=== PATIENT | male | born 1995 | race Caucasian/White ===

== ENCOUNTER 2016-12-06 12:57 | Day surgery (SDC) | payer MEDICAID, OTHER ==
[~2016-12-06] VITALS: Ht 185.4 cm; Wt 98.9 kg
[2016-12-06] MEDS ORDERED: dexameTHASONE 10 MG/1 ML VIAL PRES.FREE (J1100) ONE (12:58)
[2016-12-06] MEDS ORDERED: LIDOCAINE 1% MDV 20ML VIAL ONE (12:58)
[2016-12-06] MEDS ORDERED: ROPIvacaine 0.5% 30 ML INJECTION (J2795) ONE (12:58)
[2016-12-06] MEDS ORDERED: PERCOCET 5MG/325MG TAB PO ONE (13:00)
[2016-12-06] MEDS ORDERED: LR 1,000 ML IV SCH ×2 (13:00→18:30)
[2016-12-06] MEDS ORDERED: LR 1,000 ML IV ONE (13:45)
[2016-12-06] MEDS ORDERED: MIDAZOLAM INJ 2 MG/2 ML VIAL (J2250) As Ordered ONE ×2 (14:55→15:26)
[2016-12-06] MEDS ORDERED: fentaNYL 100 MCG/2 ML INJECTION (J3010) As Ordered ONE ×3 (14:55→16:27)
[2016-12-06] MEDS ORDERED: BUPIVACAINE/EPIN 0.25% 30 ML VIAL As Ordered ONE (15:19)
[2016-12-06] MEDS ORDERED: ceFAZolin 1GM INJ (J0690) As Ordered ONE (15:20)
[2016-12-06] MEDS ORDERED: MIDAZOLAM INJ 2 MG/2 ML VIAL (J2250) IV ONE (15:30)
[2016-12-06] MEDS ORDERED: fentaNYL 100 MCG/2 ML INJECTION (J3010) IV ONE (15:30)
[2016-12-06] MEDS ORDERED: LIDOCAINE 2% INJ 100 MG/5 ML SDV (FOR ANES.) As Ordered ONE (15:56)
[2016-12-06] MEDS ORDERED: PROPOFOL 200 MG/20 ML VIAL As Ordered ONE (16:27)
[2016-12-06] MEDS ORDERED: ONDANSETRON 4MG/2ML VIAL (J2405) As Ordered ONE (16:27)
[2016-12-06] MEDS ORDERED: NEOSTIGMINE 1MG/ML 5 ML SYRINGE (J2710) As Ordered ONE (16:37)
[2016-12-06] MEDS ORDERED: GLYCOPYRROLATE INJ 0.2 MG/ML 2 ML VIAL As Ordered ONE (16:37)
[2016-12-06] MEDS ORDERED: HYDROmorphone HCL 1 MG/ML SYRINGE (J1170) IV PRN (18:30)
[2016-12-06] MEDS ORDERED: ONDANSETRON 4MG/2ML VIAL (J2405) IV PRN (18:30)
[2016-12-06] MEDS ORDERED: PERCOCET 5MG/325MG TAB PO PRN ×3 (18:30)
[2016-12-06] MEDS ORDERED: PROMETHAZINE INJ 25 MG/ML VIAL (J2550) IV PRN (18:30)
[2016-12-06] MEDS ORDERED: fentaNYL 100 MCG/2 ML INJECTION (J3010) IV PRN (18:30)
[2016-12-06] MEDS ORDERED: MORPHINE 4 MG/ML 1ML SYRINGE IV PRN (18:30)
[2016-12-06 19:00] VITALS: BP 157/91
[2016-12-06 19:30] VITALS: BP 140/95
[2016-12-06 20:30] VITALS: BP 144/85
[2016-12-06 21:30] VITALS: BP 145/83
[2016-12-06 22:30] VITALS: BP 147/79
[2016-12-07] VITALS: BP 137/72
[2016-12-07 04:00] VITALS: BP 133/76
[2016-12-07 08:00] VITALS: BP 148/85
--- NOTE | 2016-12-08 02:45 | REP ---
Clinical: Evaluate orthopedic hardware. Technique: AP and axial views of the left clavicle. Findings: The patient is noted to be status post open reduction and fixation for mid clavicular shaft fracture. While the distal aspect of the plate appears from the underlying clavicle by approximately 4 mm, the associated screws are normal in appearance and position without surrounding lucency to suggest abnormality. No periosteal reaction is identified. No new acute fracture. The acromioclavicular joint is relatively maintained. Impression: Orthopedic hardware for a mid clavicular shaft fracture appears stable and without acute findings or pathology. Signed by Michele Martin MD 12/08/2016 02:37 A
--- NOTE | 2016-12-08 16:43 | RO ---
DATE OF PROCEDURE: 12/06/2016 PREOPERATIVE DIAGNOSIS: Left clavicle nonunion. POSTOPERATIVE DIAGNOSIS: Left clavicle nonunion. PROCEDURE PERFORMED: Exploration of the left clavicle nonunion, debridement of left clavicle, and repair of left clavicle nonunion / open reduction internal fixation (ORIF) with metal hardware. SURGEON: Dr. Jaime Tsai RUFFLER: Dr. Larry Randall. ANESTHESIA: General. ESTIMATED BLOOD LOSS: Less than 30 mL replaced with crystalloid. COMPLICATIONS: No complications. COMPONENTS USED: Include a [employer] superior / anterior clavicle lock plate system 5 volts plate and the appropriate screws. INDICATIONS: Jan is a 21-year-old male with the clavicle nonunion. Clavicle fracture that has not healed since June 2016. He has elected for operative intervention. Next, consent reviewed in detail including a rukhsana discussion of the pathology involved, the procedure proposed, alternatives including doing nothing, risks including but not limited to pain, failure, infection, bleeding, blood loss, incomplete relief symptoms and other problems. The patient agreed to proceed with surgery. Operative course identified in the holding area site side verified brought to the operating room. General endotracheal anesthesia was administered. He was positioned for exposure of the left shoulder and the beach-chair position. Next, once I and the operations intelligence were comfortable and the patient's positioning he was then sterilely prepped and draped. Next line the incision outlined with a marking pen infiltrated with 0.25% Marcaine with epinephrine. I made the incision using a #10 blade, developed down through skin subcuticular tissues. Next, the clavicle was identified. Proximal end was identified. The incision continued 3 cm or three fingerbreadths proximal to the injury. Next, the distal fragment identified. Next, we exposed the distal and proximal fragment. Next, once the fragments were mobilized by myself and Dr. Larry Randall, we utilized fracture reduction clamps to reduce them. Next, once this was accomplished an interfragmentary screw from anterior to posterior was placed securing the fracture fragment and this allowed removal of the clamps. Next, prior to this maneuver both ends of the clavicle were freshened and roughened to facilitate bone healing. Next, the plate was obtained 5 volts plate seems to fit appropriately, required minimal bending. Plate was secured to the clavicle using cortical screws. On the proximal end we did manage she had a single cortical screw on the distal fragment as well as the locking 2-7 screws. Next, visually the clavicle appeared to be nearly anatomic alignment. Next, irrigation was accomplished. Next, demineralized bone matrix putty was injected into the fracture site and under the plate at the site of fracture. Next, the wound was closed using interrupted stitch in layer fashion. Next DERMABOND / pernio dressing utilized on the epidermal layer. Next, the patient was extubated and moved to recovery room in good condition. For further details please refer to medical record.
== END 2016-12-07 10:30 | disposition home or self-care (01) ==
LOC: M SDC 12:57 → M PED 18:49 → M SDC 12-07 10:30
PROVIDERS: ATTEND Orthopaedic Surgery
DX: S42.022K Displaced fracture of shaft of left clavicle, subsequent encounter for fracture with nonunion (principal)
CPT/HCPCS: 23515; 36415; 73000; 85018; 86850; 86900; 86901; 96375; C1762; C1776